=== PATIENT | male | born 2000 | race Caucasian/White ===

== ENCOUNTER 2020-04-15 15:32 | Inpatient (IN) ==
[2020-04-15 16:03] LABS: Appearance Urine Clear (Clear); Bacteria Urine Automated Negative (Negative); Bilirubin Urine Negative (Negative); Blood Urine Negative (Negative); Color Urine Dark Yellow; Glucose Urine UA Negative (Negative); Ketones Urine 1+ (Negative); Leukocyte Esterase Urine Trace (Negative); Nitrite Urine Negative (Negative); Protein Urine 1+ (Negative); RBC Urine Automated 0-4 /hpf (0-4); Specific Gravity Urine 1.033 (1.000-1.030); Urobilinogen Urine Negative (Negative)
[2020-04-15 16:21] LABS: Basophils # (auto) 0.03 K/uL (0-0.2); Basophils % (auto) 0.3 %; Eosinophils # (auto) 0.02 K/uL (0-0.5); Eosinophils % (auto) 0.2 %; Hematocrit (blood only) 42.1 % (42-52); Hemoglobin 14.8 g/dL (14.0-18.0); Immature Granulocytes # (auto) 0.01 K/uL (0.00-0.02); Immature Granulocytes % (auto) 0.1 %; Lymphocytes # (auto) 1.99 K/uL (1.2-3.4); Lymphocytes % (auto) 22.3 %; Mean Corpuscular Hemoglobin 30.5 pg (25-34); Mean Corpuscular Hgb Conc 35.2 g/dL (32-36); Mean Corpuscular Volume 86.8 fL (80-100); Mean Platelet Volume 10.5 fL (7.4-10.4); Monocytes # (auto) 0.82 K/uL (0.11-0.59); Monocytes % (auto) 9.2 %; Neutrophils # (auto) 6.07 K/uL (1.4-6.5); Neutrophils % (auto) 67.9 %; Platelet Count 345 K/uL (130-400); RDW Coefficient of Variation 12.8 % (11.5-14.5); RDW Standard Deviation 40.8 fL (36.4-46.3); Red Blood Count 4.85 M/uL (4.7-6.1); White Blood Count 8.94 K/uL (4.8-10.8)
[2020-04-15 16:24] LABS: Amphetamines+Metham, Urine Neg (Neg); Barbiturates, Urine Neg (Neg); Benzodiazepine, Urine Neg (Neg); Cocaine, Urine Neg (Neg); MDMA (Ecstacy), Urine Neg (Neg); Methadone, Urine Neg (Neg); Opiate, Urine Neg (Neg); Phencyclidine, Urine Neg (Neg)
--- NOTE | 2020-04-15 16:30 | Emergency Department Note ---
Impression & Plan Mood disorder, Depression, Marijuana use ED Provider Note NAME: PREET PHILLIP AGE: 19 SEX: M : 2000 ARRIVES VIA: Walk-In INFORMANT: Patient ED PROVIDER(S): Juan Alberto Maradiaga DO CHIEF COMPLAINT: Mood disorder HPI: Patient is a 19-year-old male who presents to the ER for mood disorder. Patient notes that he has been feeling sad and depressed. He has had this for years and it waxes and wanes. Has been diagnosed with depression. Has been taking his medications. He notes that over the past several months things have been getting worse. Small things snowball into bigger things. He denies any homicidal ideations. He admits to thoughts of wanting to end it all. He denies any current plan. He notes these thoughts have been recurrent and persistent and that is why he has come in. He does not want to hurt himself at this time these thoughts are continuing. ROS: See above HPI for pertinent positives & negatives. A total of 10 systems reviewed and were otherwise negative. PAST MEDICAL HISTORY:See Below PAST SURGICAL HISTORY:See Below FAMILY HISTORY:See Below SOCIAL HISTORY:See Below HOME MEDICATIONS:See Below ALLERGIES:See Below VITALS:See Below PHYSICAL EXAMINATION: GENERAL: Sitting up in bed, alert, well appearing, well nourished, no distress, non-toxic EYE EXAM: normal conjunctiva OROPHARYNX: no exudate, no erythema, lips, buccal mucosa, and tongue normal and mucous membranes are moist NECK: supple, no nuchal rigidity, no adenopathy, non-tender LUNGS: Clear to auscultation. Normal chest wall mechanics HEART: no murmurs, S1 normal and S2 normal ABDOMEN: abdomen soft, non-tender, normo-active bowel sounds, no masses, no rebo und or guarding. UPPER EXTREMITIES: upper extremities are grossly normal. LOWER EXTREMITIES: No pitting edema. NEURO EXAM: Normal sensorium, cranial nerves II-XII grossly intact, normal speech, no gross weakness of arms, no gross weakness of legs. PSYCH: Admits to thoughts of wanting to end it all but no clear plan. No homicidal ideations. No auditory visual hallucinations. MEDICAL DECISION MAKING: Patient is a 89-year-old male who presents ER for feeling depressed and life is not worth living anymore. He does not have any clear plan at this time but feels uncomfortable being at home. Does have a history of depression. Labs were obtained and showed no significant leukocytosis or anemia. BMP with LFTs bilirubin and TSH was unremarkable. UA was contaminated with multiple epithelial cells. Will not treat. Tox was positive for marijuana. Alcohol neg ative. Covid negative. Patient was medically stable. Evaluated by 3 S. and admitted for further work-up. Triage Nursing notes reviewed. Prior medical records reviewed Vital Signs: reviewed and remarkable for no significant abnormalities Differential diagnosis: Mood disorder, infection, hypoglycemia, electrolyte abnormalities, cardiac sources, intracerebral event, toxicologic, trauma, neurologic, as well as other pathologies. ER treatment provided: See below Diagnostics interpreted by me: ECG: none Laboratory studies: As stated above and show below. Imaging studies: none Consultation(s): [address] [place] [address] ED COURSE: Procedures: none Critical Care: None Past Med/Surg History Social History Smoking Status: Never smoker Preferred Language: Arabic Communication Ability: Effective Weatherization Crew Leader Required: No Beliefs That Will Affect Care: None Feels Safe at Home: Yes Assistive Devices: None Allergies Allergies Allergy/AdvReac Type Severity Reaction Status Date / Time No Known Allergies Allergy Unverified 04/15/20 16:13 Home Meds Home Medications Medication Instructions Recorded Confirmed escitalopram oxalate 10 mg PO DAILY 04/15/20 04/15/20 Results & Data (ED) Vital Signs Vital Signs - 24 hr 04/15/20 15:36 04/15/20 17:32 Temperature 37.4 C Temperature Source Oral Pulse Rate 84 Pulse Rate [Right Finger] 68 Respiratory Rate 18 20 Respiratory Effort / Characteristics Non-Labored Spontaneous Respiratory Depth Normal Respiratory Pattern Regular Blood Pressure 145/78 H Blood Pressure [Right Arm] 124/77 Blood Pressure Mean 100 Blood Pressure Mean [Right Arm] 92 Pulse Oximetry 99 98 Oxygen Delivery Method Room Air Room Air Sepsis Recent Fever Within 48 Hours No Sepsis New/Unexplained Change in Mental Status N/A Sepsis Action Taken by Nursing No Action Required Laboratory Data Result diagrams: 04/15/20 16:06 04/15/20 16:06 Lab Results 04/15/20 04/15/20 04/15/20 Range/Units 15:40 15:40 16:06 WBC 8.94 (4.8-10.8) K/uL RBC 4.85 (4.7-6.1) M/uL Hgb 14.8 (14.0-18.0) g/dL Hct 42.1 (42-52) % MCV 86.8 (80-100) fL MCH 30.5 (25-34) pg MCHC 35.2 (32-36) g/dL RDW Std Deviation 40.8 (36.4-46.3) fL RDW Coeff of Yeny 12.8 (11.5-14.5) % Plt Count 345 (130-400) K/uL MPV 10.5 H (7.4-10.4) fL Immature Gran % (Auto) 0.1 % Neut % (Auto) 67.9 % Lymph % (Auto) 22.3 % [place] % (Auto) 9.2 % Eos % (Auto) 0.2 % Baso % (Auto) 0.3 % Neut # (Auto) 6.07 (1.4-6.5) K/uL Lymph # (Auto) 1.99 (1.2-3.4) K/uL [place] # (Auto) 0.82 H (0.11-0.59) K/uL Eos # (Auto) 0.02 (0-0.5) K/uL Baso # (Auto) 0.03 (0-0.2) K/uL Immature Gran # (Auto) 0.01 (0.00-0.02) K/uL Sodium (136-145) mmol/L Potassium (3.5-5.1) mmol/L Chloride (98-107) mmol/L Carbon Dioxide (21-32) mmol/L Anion Gap (3-11) BUN (7-18) mg/dl Creatinine (0.6-1.4) mg/dl Est Cr Clr Drug Dosing ml/min Est GFR ( Amer) Est GFR (Non-Af Amer) BUN/Creatinine Ratio (10-20) Glucose (70-99) mg/dl Calcium (8.5-10.1) mg/dl Total Bilirubin (0.2-1) mg/dl AST (15-37) U/L ALT (12-78) U/L Alkaline Phosphatase (45-117) U/L Total Protein (6.4-8.2) gm/dl Albumin (3.4-5.0) gm/dl Globulin (2.5-4.0) gm/dl Albumin/Globulin Ratio (0.9-2) TSH (0.300-4.500) uIu/ml Urine Color Dark Yellow Urine Appearance Clear (Clear) Urine pH 6.0 (4.5-7.5) Ur Specific [place] 1.033 H (1.000-1.030) Urine Protein 1+ H (Negative) Urine Glucose (UA) Negative (Negative) Urine Ketones 1+ H (Negative) Urine Blood Negative (Negative) Urine Nitrite Negative (Negative) Urine Bilirubin Negative (Negative) Urine Urobilinogen Negative (Negative) Ur Leukocyte Esterase Trace H (Negative) Urine WBC (Auto) 1-5 (0-5) /hpf Urine RBC (Auto) 0-4 (0-4) /hpf U Hyaline Cast (Auto) 1-5 (0-5) /lpf U Epithel Cells (Auto) 5-10 H (0-5) /lpf Urine Bacteria (Auto) Negative (Negative) Salicylates (2.8-20) mg/dl Urine Opiates Screen Neg (Neg) Ur Methadone, Qual Neg (Neg) Acetaminophen (10-30) ug/ml Urine Barbiturates Neg (Neg) Ur Phencyclidine (PCP) Neg (Neg) U Amphetamin/Meth Scrn Neg (Neg) MDMA (Ecstasy) Screen Neg (Neg) U Benzodiazepines Scrn Neg (Neg) Ur Cocaine Metabolite Neg (Neg) U Marijuana (THC) Screen Pos H (Neg) Ethyl Alcohol mg/dL (0-3) mg/dl 04/15/20 04/15/20 04/15/20 Range/Units 16:06 16:06 16:06 WBC (4.8-10.8) K/uL RBC (4.7-6.1) M/uL Hgb (14.0-18.0) g/dL Hct (42-52) % MCV (80-100) fL MCH (25-34) pg MCHC (32-36) g/dL RDW Std Deviation (36.4-46.3) fL RDW Coeff of Yeny (11.5-14.5) % Plt Count (130-400) K/uL MPV (7.4-10.4) fL Immature Gran % (Auto) % Neut % (Auto) % Lymph % (Auto) % [place] % (Auto) % Eos % (Auto) % Baso % (Auto) % Neut # (Auto) (1.4-6.5) K/uL Lymph # (Auto) (1.2-3.4) K/uL [place] # (Auto) (0.11-0.59) K/uL Eos # (Auto) (0-0.5) K/uL Baso # (Auto) (0-0.2) K/uL Immature Gran # (Auto) (0.00-0.02) K/uL Sodium 137 (136-145) mmol/L Potassium 3.6 (3.5-5.1) mmol/L Chloride 105 (98-107) mmol/L Carbon Dioxide 27 (21-32) mmol/L Anion Gap 5.0 (3-11) BUN 17 (7-18) mg/dl Creatinine 1.10 (0.6-1.4) mg/dl Est Cr Clr Drug Dosing 87.8 ml/min Est GFR ( Amer) 112.2 Est GFR (Non-Af Amer) 96.8 BUN/Creatinine Ratio 15.7 (10-20) Glucose 105 H (70-99) mg/dl Calcium 8.8 (8.5-10.1) mg/dl Total Bilirubin 0.7 (0.2-1) mg/dl AST 11 L (15-37) U/L ALT 17 (12-78) U/L Alkaline Phosphatase 55 (45-117) U/L Total Protein 7.8 (6.4-8.2) gm/dl Albumin 4.5 (3.4-5.0) gm/dl Globulin 3.3 (2.5-4.0) gm/dl Albumin/Globulin Ratio 1.4 (0.9-2) TSH 0.736 (0.300-4.500) uIu/ml Urine Color Urine Appearance (Clear) Urine pH (4.5-7.5) Ur Specific [place] (1.000-1.030) Urine Protein (Negative) Urine Glucose (UA) (Negative) Urine Ketones (Negative) Urine Blood (Negative) Urine Nitrite (Negative) Urine Bilirubin (Negative) Urine Urobilinogen (Negative) Ur Leukocyte Esterase (Negative) Urine WBC (Auto) (0-5) /hpf Urine RBC (Auto) (0-4) /hpf U Hyaline Cast (Auto) (0-5) /lpf U Epithel Cells (Auto) (0-5) /lpf Urine Bacteria (Auto) (Negative) Salicylates < 1.7 L (2.8-20) mg/dl Urine Opiates Screen (Neg) Ur Methadone, Qual (Neg) Acetaminophen < 2 L (10-30) ug/ml Urine Barbiturates (Neg) Ur Phencyclidine (PCP) (Neg) U Amphetamin/Meth Scrn (Neg) MDMA (Ecstasy) Screen (Neg) U Benzodiazepines Scrn (Neg) Ur Cocaine Metabolite (Neg) U Marijuana (THC) Screen (Neg) Ethyl Alcohol mg/dL < 3.0 (0-3) mg/dl Discharge Plan Visit Data Chief Complaint: Mental Health Evaluation Stated Complaint: MENTAL HEALTH EVAL ED Provider: Juan Alberto Maradiaga Discharge Problem: Mood disorder, Depression, Marijuana use Discharge Problem: Depression Qualifiers: Depression Type: unspecified Qualified Code(s): F32.9 - Major depressive disorder, single episode, unspecified
[2020-04-15 16:44] LABS: Albumin Level 4.5 gm/dl (3.4-5.0); BUN Creatinine Ratio 15.7 (10-20); Calcium 8.8 mg/dl (8.5-10.1); Creatinine Clr Calc Pharmacy 87.8 ml/min; Est GFR (African American) 112.2; Est GFR (Non-African American) 96.8; Potassium 3.6 mmol/L (3.5-5.1)
[2020-04-15 16:55] LABS: Albumin Globulin Ratio 1.4 (0.9-2); Bilirubin,Total 0.7 mg/dl (0.2-1); Globulin 3.3 gm/dl (2.5-4.0); Thyroid Stimulating Hormone 0.736 uIu/ml (0.300-4.500); Total Protein 7.8 gm/dl (6.4-8.2)
[2020-04-15 17:06] LABS: Acetaminophen < 2 ug/ml (10-30); Salicylate < 1.7 mg/dl (2.8-20)
[2020-04-15] MEDS ORDERED: ACETAMINOPHEN 325 MG TAB PO PRN (18:51)
[2020-04-15] MEDS ORDERED: ALUMINUM/MAGNESIUM SUSP 30 ML UDC PO PRN (18:51)
[2020-04-15] MEDS ORDERED: hydrOXYzine HCl 25 MG TAB PO PRN ×2 (18:51)
[2020-04-15] MEDS ORDERED: BISMUTH SUBSALICYLATE LIQD 236 ML PO PRN (18:51)
[2020-04-15] MEDS ORDERED: SODIUM CHLORIDE 0.65% NA SOLN 45 ML (OCEAN) PRN (18:51)
[2020-04-15] MEDS ORDERED: MAGNESIUM HYDROXIDE SUSP 30 ML UDC PO PRN (18:51)
[2020-04-16] MEDS ORDERED: ESCITALOPRAM OXALATE 10 MG TAB PO SCH (09:00)
--- NOTE | 2020-04-16 16:22 | History & Physical ---
Date of Service April 16, 2020 Impression / Recommendations (1) Depression: 04/16/2020 -Patient admitted on a voluntary status to the behavioral health unit. He will be maintained on every 15 minute safety checks and encouraged to participate in therapeutic programming as appropriate -We'll continue to expand database. Input from patient's mother per social work suggests possibility that he is minimizing severity of suicidality on initial interview -Common risks and benefits as well as need for consistent medication compliance reviewed regarding SSRI. Patient was agreeable to small dose escalation of Lexapro to 15 mg daily for additional antidepressant benefit Depression Type: unspecified Qualified Code(s): F32.9 - Major depressive disorder, single episode, unspecified (2) Marijuana use: 04/16/2020 -Psychoeducation provided regarding the potential negative outcomes of marijuana abuse regarding underlying mood disorder and abstinence encouraged. Patient verbalized understanding and indicated that he had already significantly reduced marijuana utilization prior to presentation as he felt that it was making him more apathetic Risk Factors Assessment Do You Have Access To A Gun?: No (Reports father has guns at home but are secured) Protective Factors Assessment Employed: No Psychiatric History Identifying Data PREET PHILLIP is a 19-year-old M who currently lives in an apartment in [place] when in school but presently in parents' home in [place], [place], has a history of no formal prior psychiatric diagnoses with treatment and no significant prior medical history, and was admitted on 04/15/20 18:51 on a 201 voluntary commitment for suicidal ideation. Chief Complaint "I feel a lot better since I came in here. It makes you think about how cielo you are". History of Present Illness Patient was admitted through the ER last evening where he presented reporting feeling sad, depressed, with waxing and waning course over the years. He felt that his depression has been getting worse over the past several months with small stressors having more overwhelming emotional impact. He acknowledged thoughts of wanting to end it all and thought that the suicidal impulses have been recurrent and persistent but denied a specific plan for self-harm. He was medically cleared for behavioral health admission. Labs were unremarkable apart from marijuana on drug screen. On interview he describes a long history of depression where he will feel sad without clear trigger. He describes recent default mood as "bored and lonely." COVID-19 restrictions have worsened his mood. "It feels like he can't do anything." He describes recurrent but not persistent desire to escape the pain of how he is feeling however he denies that he has concocted a specific plan for self-harm and denies a history of self injury. He describes stable sleep patterns, fair energy, crying spells 1-2 times per week, small unquantified recent weight loss. He denies anhedonia. He denies any symptoms of psychosis, venice, PTSD, generalized anxiety, social anxiety, eating disorder, or panic attacks. He reports he was started on Lexapro a few years ago by his PCP around the age of [age] but did not take it consistently and discontinued after approximately 6 months. This was restarted approximately 1 month ago without side effects. He reports that he is presently compliant with the medication. He describes a quick flight to health on admission stating that he does not believe he needs this level of intervention, intent or plan for self-harm presently, but does describe desire to seek additional supports and feel better. Of note, in the afternoon following initial psychiatric interview, I was informed by social work that the patient's mother had indicated to her that he had made numerous threats to commit suicide, that she had made efforts to involve his school but he failed to follow through, and that on Saturday he told her via text that he wanted to kill himself and he refused to engage in discourse about that which prompted her to alert his girlfriend who reportedly brought him to the ER. Patient's girlfriend reportedly told his mother that she had seen evidence of some cuts on arms and legs that were not described on physical exam in the ER. Past Psychiatric History Previous Psych History: Prior brief treatment on Lexapro by PCP took for 6 months or less inconsistently around age of [age]. Restarted 1 month prior to presentation here Current Psychiatric Diagnosis: Depression Outpatient Services: None Previous Psych Admissions: None Do You Have Access To A Gun?: No (Reports father has guns at home but are secured) History of Previous Suicide Attempt: No Past Medication Trials: Lexapro Past Head Trauma/Neuro History History of Concussion/Seizure: No Allergies Allergy/AdvReac Type Severity Reaction Status Date / Time No Known Allergies Allergy Unverified 04/15/20 16:13 Home Medications Medication Instructions Recorded Confirmed Type escitalopram oxalate 10 mg PO DAILY 04/15/20 04/15/20 History Family History Family History of: Depression (Reports multiple family members with history of depression including mother, sisters, maternal uncle, maternal grandmother) Family Mental Health History Comment: Denies family history of suicide Alcohol History Hx of Alcohol Use Over the Past 12 Months: No AUDIT Total Score: 0 Smoking Use Have You Smoked or Used Tobacco Products in the Last 30 Days: Yes tobacco type: e-cigarettes (Reports daily vaping) Substance History Hx of Prescription Med Misuse Over the Past 12 Months: No Hx of Over the Counter Med Misuse Over the Past 12 Months: No Hx of Inhalent Misuse Over the Past 12 Months: No Hx of Organic Substance Use Over the Past 12 Months: Yes (marijuana occassionally none in past 3 days) Hx of Illegal Substances/Street Drug Use Over Past 12 Months: No Problems as a Result of Past Substance Use: None Identified Personal History Living Arrangements: Home Living Arrangements Comments: Lives at home with his parents. Has an apartment at school in [place] with three other roommates Childhood: Reports supportive parents Highest Grade Completed: College and Some College Highest Grade Completed Comment: Sophomore at [employer]. Majoring in [employer] with a minor in economics Marital Status: Single Number Of Children: 0 Beliefs That Will Affect Care: None Current Legal Problems: No Hx Legal Problems: No Hx Traumatic Life Events: No Psychological Trauma History Comment: Denies Patient History Social History Smoking Status: Never smoker Preferred Language: Chinese Communication Ability: Effective Forensic Medical Examiner Required: No Beliefs That Will Affect Care: None Feels Safe at Home: Yes Assistive Devices: None Review of Systems Review of Systems: Ten point review of systems otherwise negative except as p er HPI Physical Exam Psychiatric: Orientation: alert, oriented x 3 and cooperative Apperance: appropriately dressed and appropriately groomed Eye Contact: + fair eye contact Motor Behavior: steady gait and station and no abnormal motor movements Speech: normal rate/rhythm/volume of speech Affect: euthymic affect (Mildly anxious) Mood: no depressed mood ("I feel fine now.") Thought Process: goal directed thought process Thought Content: reality based without delusions (Flight to health evident) Suicidal Thoughts: denies suicidal thoughts (Acknowledges suicidal thoughts prior to admission), denies suicidal plan and denies suicidal intent Homicidal Thoughts: denies homicidal thoughts, denies homicidal plan and denies homicidal intent Hallucinations: no auditory hallucinations, no visual hallucinations and no tactile hallucinations Cognition: recent memory grossly intact, remote memory grossly intact and attention grossly intact Estimated Intelligence: average estimated intelligence Insight: + fair insight Judgement: + fair judgement Vital Signs (Past 24 Hours): Last Vital Signs Temp 36.8 C 04/16/20 06:45 Pulse 73 04/16/20 06:46 Resp 16 04/16/20 06:45 BP 100/67 04/16/20 06:46 Pulse Ox 98 04/15/20 17:32 Exam Statement: Physical exam completed in the ER 04/15/2020 was reviewed and accepted for purpose of initial behavioral health admission Results & Data ([facility]) Laboratory Results Laboratory Results - last 24 hr 04/15/20 04/15/20 04/15/20 15:40 15:40 16:06 WBC 8.94 RBC 4.85 Hgb 14.8 Hct 42.1 MCV 86.8 MCH 30.5 MCHC 35.2 RDW Std Deviation 40.8 RDW Coeff of Yeny 12.8 Plt Count 345 MPV 10.5 H Immature Gran % (Auto) 0.1 Neut % (Auto) 67.9 Lymph % (Auto) 22.3 [place] % (Auto) 9.2 Eos % (Auto) 0.2 Baso % (Auto) 0.3 Neut # (Auto) 6.07 Lymph # (Auto) 1.99 [place] # (Auto) 0.82 H Eos # (Auto) 0.02 Baso # (Auto) 0.03 Immature Gran # (Auto) 0.01 Sodium Potassium Chloride Carbon Dioxide Anion Gap BUN Creatinine Est Cr Clr Drug Dosing Est GFR ( Amer) Est GFR (Non-Af Amer) BUN/Creatinine Ratio Glucose Calcium Total Bilirubin AST ALT Alkaline Phosphatase Total Protein Albumin Globulin Albumin/Globulin Ratio TSH Salicylates Urine Opiates Screen Neg Ur Methadone, Qual Neg Acetaminophen Urine Barbiturates Neg Ur Phencyclidine (PCP) Neg U Amphetamin/Meth Scrn Neg MDMA (Ecstasy) Screen Neg U Benzodiazepines Scrn Neg Ur Cocaine Metabolite Neg U Marijuana (THC) Screen Pos H U Marijuana THC Carboxy Pending Drug Screen Comment Pending Ethyl Alcohol mg/dL SARS-CoV-2 Ag (Rapid) 04/15/20 04/15/20 04/15/20 16:06 16:06 16:06 WBC RBC Hgb Hct MCV MCH MCHC RDW Std Deviation RDW Coeff of Yeny Plt Count MPV Immature Gran % (Auto) Neut % (Auto) Lymph % (Auto) [place] % (Auto) Eos % (Auto) Baso % (Auto) Neut # (Auto) Lymph # (Auto) [place] # (Auto) Eos # (Auto) Baso # (Auto) Immature Gran # (Auto) Sodium 137 Potassium 3.6 Chloride 105 Carbon Dioxide 27 Anion Gap 5.0 BUN 17 Creatinine 1.10 Est Cr Clr Drug Dosing 87.8 Est GFR ( Amer) 112.2 Est GFR (Non-Af Amer) 96.8 BUN/Creatinine Ratio 15.7 Glucose 105 H Calcium 8.8 Total Bilirubin 0.7 AST 11 L ALT 17 Alkaline Phosphatase 55 Total Protein 7.8 Albumin 4.5 Globulin 3.3 Albumin/Globulin Ratio 1.4 TSH 0.736 Salicylates < 1.7 L Urine Opiates Screen Ur Methadone, Qual Acetaminophen < 2 L Urine Barbiturates Ur Phencyclidine (PCP) U Amphetamin/Meth Scrn MDMA (Ecstasy) Screen U Benzodiazepines Scrn Ur Cocaine Metabolite U Marijuana (THC) Screen U Marijuana THC Carboxy Drug Screen Comment Ethyl Alcohol mg/dL < 3.0 SARS-CoV-2 Ag (Rapid) 04/15/20 Unknown WBC RBC Hgb Hct MCV MCH MCHC RDW Std Deviation RDW Coeff of Yeny Plt Count MPV Immature Gran % (Auto) Neut % (Auto) Lymph % (Auto) [place] % (Auto) Eos % (Auto) Baso % (Auto) Neut # (Auto) Lymph # (Auto) [place] # (Auto) Eos # (Auto) Baso # (Auto) Immature Gran # (Auto) Sodium Potassium Chloride Carbon Dioxide Anion Gap BUN Creatinine Est Cr Clr Drug Dosing Est GFR ( Amer) Est GFR (Non-Af Amer) BUN/Creatinine Ratio Glucose Calcium Total Bilirubin AST ALT Alkaline Phosphatase Total Protein Albumin Globulin Albumin/Globulin Ratio TSH Salicylates Urine Opiates Screen Ur Methadone, Qual Acetaminophen Urine Barbiturates Ur Phencyclidine (PCP) U Amphetamin/Meth Scrn MDMA (Ecstasy) Screen U Benzodiazepines Scrn Ur Cocaine Metabolite U Marijuana (THC) Screen U Marijuana THC Carboxy Drug Screen Comment Ethyl Alcohol mg/dL SARS-CoV-2 Ag (Rapid) Negative Current Inpatient Medications Current Inpatient Medications: Current Inpatient Medications Acetaminophen (Acetaminophen 325 Mg Tab) 650 mg PO Q4H PRN PRN Reason: Headache or Minor Fever Stop: 05/15/20 18:50 Al Hydrox/Mg Hydrox/Simethicone (Aluminum/Magnesium Susp 30 Ml Udc) 30 ml PO Q4H PRN PRN Reason: GI Upset Stop: 05/15/20 18:50 Bismuth Subsalicylate (Bismuth Subsalicylate Liqd 236 Ml) 15 ml PO PRN PRN PRN Reason: Loose Stool Stop: 05/15/20 18:50 Escitalopram Oxalate (Escitalopram Oxalate 10 Mg Tab) 10 mg PO QAM PAULO Stop: 05/16/20 08:59 Last Admin: 04/16/20 08:44 Dose: 10 mg Documented by: Hydroxyzine HCl (Hydroxyzine Hcl 25 Mg Tab) 50 mg PO HSZ PRN PRN Reason: Insomnia Stop: 05/15/20 18:50 Hydroxyzine HCl (Hydroxyzine Hcl 25 Mg Tab) 25 mg PO Q4H PRN PRN Reason: Anxiety Stop: 05/15/20 18:50 Magnesium Hydroxide (Magnesium Hydroxide Susp 30 Ml Udc) 30 ml PO DAILY PRN PRN Reason: Constipation Stop: 05/15/20 18:50 Sodium Chloride (Sodium Chloride 0.65% Na Soln 45 Ml ([place])) 1 - 2 sprays NA PRN PRN PRN Reason: Nasal Dryness/Congestion Stop: 05/15/20 18:50
[2020-04-16] MEDS ORDERED: ESCITALOPRAM OXALATE 10 MG TAB PO ONE (16:34)
[2020-04-17] MEDS: ESCITALOPRAM OXALATE 10 MG TAB PO SCH (10:06)
--- NOTE | 2020-04-17 12:16 | Psychiatric Progress Note ---
Date of Service April 17, 2020 Impression / Recommendations (1) Depression: 04/16/2020 -Patient admitted on a voluntary status to the behavioral health unit. He will be maintained on every 15 minute safety checks and encouraged to participate in therapeutic programming as appropriate -We'll continue to expand database. Input from patient's mother per social work suggests possibility that he is minimizing severity of suicidality on initial interview -Common risks and benefits as well as need for consistent medication compliance reviewed regarding SSRI. Patient was agreeable to small dose escalation of Lexapro to 15 mg daily for additional antidepressant benefit 04/17 -I am increasingly concerned about patient's safety and impulsivity today, as it appears likely that he has not been forthcoming regarding recent self injury (cutting) and degree of emotional distress which has been recently associated with some destructive behavior and suicidal threats per outside historian. As such, we will plan to continue his hospitalization at least until tomorrow and reinvolve his mother with another family meeting this afternoon mood with his permission to try to bring some of these issues to the fore and hopefully engage him in some more honest dialogue -Consider increasing Lexapro to 20 mg daily prior to discharge -Reviewed importance of outpatient follow-up and patient expresses continued willingness to do so. On Saturday we will be able to schedule him for psychiatric and therapy follow-up appointments (2) Marijuana use: 04/16/2020 -Psychoeducation provided regarding the potential negative outcomes of marijuana abuse regarding underlying mood disorder and abstinence encouraged. Patient verbalized understanding and indicated that he had already significantly reduced marijuana utilization prior to presentation as he felt that it was making him more apathetic Risk Factors Assessment Do You Have Access To A Gun?: No (Reports father has guns at home but are secured) Protective Factors Assessment Employed: No Interval History Chief Complaint "I'm not lying. I am fine". Review of Systems Notes 10 point review of systems otherwise negative except as above Sleep Information Total Hours of Sleep: 6.5 Meal Information Percent Meal Consumed - Breakfast: 80 Percent Meal Consumed - Lunch: 80 Percent Meal Consumed - Dinner: 70 Subjective Subjective Patient was seen & assessed and interval progress reviewed with treatment team. Patient was confronted with supplementary information obtained from patient's mother yesterday indicating recent suicidal threats, her expressed significant concern for his safety should he return home presently, recent destruction of physical property which was reportedly out of character for him, and possibility of recent self injury in the form of cutting. Patient showed me his forearms this morning and he had a series of several parallel approximate 1 inch superficial healing scratches on his left forearm which appeared to be self- inflicted. He tried to explain he is away stating that he has a cat and has been doing some work with his father and held fast to this explanation despite multiple opportunities for him to disclose self injury. 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 Contradictory to what he told me yesterday, he now reports that he is barely passing several of his classes and if he misses his accounting exam he is worried that he will fail. He again reports a [facility] upon arrival to the hospital stating that he only needed an opportunity to see that he does not have it so bad as compared to others and tells me that his mood is the best that it has been in quite some time this morning however he looks dys phoric outwardly. He denies any active intention or plan for self-harm. He states that he would never do that because he does not like pain. He denies any additional stressors or recent traumas that he is willing to disclose. Physical Exam Psychiatric Orientation: alert, oriented x 3 and + guarded Apperance: appropriately dressed and appropriately groomed (Casually groomed) Eye Contact: + fair eye contact Motor Behavior: steady gait and station Speech: normal rate/rhythm/volume of speech Affect: + mood not congruent with affect (Outwardly he appears more constricted and dysphoric this morning) "I am fine" Thought Process: + perseveration (He repeats himself that he would never hurt himself and discharge) Thought Content: reality based without delusions Suicidal Thoughts: denies suicidal thoughts, denies suicidal plan and denies suicidal intent Homicidal Thoughts: denies homicidal thoughts Hallucinations: no auditory hallucinations, no visual hallucinations and no tactile hallucinations Cognition: recent memory grossly intact and language grossly intact Estimated Intelligence: average estimated intelligence Insight: + limited insight Judgement: + limited judgement (Judgment presently appears impacted by denial) Vital Signs (Past 24 Hours) Last Vital Signs Temp 36.6 C 04/17/20 06:35 Pulse 91 H 04/17/20 06:36 Resp 16 04/17/20 06:35 BP 108/69 04/17/20 06:36 Pulse Ox 98 11/20/20 17:32 Skin Trauma: + evidence of skin trauma (Several approximate 1 inch superficial parallel scratches L forearm) Results & Data ([facility]) Current Inpatient Medications Current Inpatient Medications: Current Inpatient Medications Acetaminophen (Acetaminophen 325 Mg Tab) 650 mg PO Q4H PRN PRN Reason: Headache or Minor Fever Stop: 05/15/20 18:50 Al Hydrox/Mg Hydrox/Simethicone (Aluminum/Magnesium Susp 30 Ml Udc) 30 ml PO Q4H PRN PRN Reason: GI Upset Stop: 05/15/20 18:50 Bismuth Subsalicylate (Bismuth Subsalicylate Liqd 236 Ml) 15 ml PO PRN PRN PRN Reason: Loose Stool Stop: 05/15/20 18:50 Escitalopram Oxalate (Escitalopram Oxalate 10 Mg Tab) 15 mg PO QAM PAULO Stop: 05/17/20 08:59 Last Admin: 04/17/20 10:06 Dose: 15 mg Documented by: Hydroxyzine HCl (Hydroxyzine Hcl 25 Mg Tab) 50 mg PO HSZ PRN PRN Reason: Insomnia Stop: 05/15/20 18:50 Hydroxyzine HCl (Hydroxyzine Hcl 25 Mg Tab) 25 mg PO Q4H PRN PRN Reason: Anxiety Stop: 05/15/20 18:50 Magnesium Hydroxide (Magnesium Hydroxide Susp 30 Ml Udc) 30 ml PO DAILY PRN PRN Reason: Constipation Stop: 05/15/20 18:50 Sodium Chloride (Sodium Chloride 0.65% Na Soln 45 Ml ([place])) 1 - 2 sprays NA PRN PRN PRN Reason: Nasal Dryness/Congestion Stop: 05/15/20 18:50 Post Discharge Appointments Primary Care Physician Name Of Family Doctor: Dr. Sharona Hodges Date of Appointment with PCP: 05/10/20 (1) Depression Depression Type: unspecified Qualified Code(s): F32.9 - Major depressive disorder, single episode, unspecified
[2020-04-17 17:22] LABS: Marijuana Quant, GCMS Urine 1380 ng/mL (<5)
[2020-04-18] MEDS: ESCITALOPRAM OXALATE 10 MG TAB PO SCH (09:07)
--- NOTE | 2020-04-18 10:51 | Psychiatric Progress Note ---
Date of Service April 18, 2020 Impression / Recommendations (1) Depression: 04/16/2020 -Patient admitted on a voluntary status to the behavioral health unit. He will be maintained on every 15 minute safety checks and encouraged to participate in therapeutic programming as appropriate -We'll continue to expand database. Input from patient's mother per social work suggests possibility that he is minimizing severity of suicidality on initial interview -Common risks and benefits as well as need for consistent medication compliance reviewed regarding SSRI. Patient was agreeable to small dose escalation of Lexapro to 15 mg daily for additional antidepressant benefit 04/17 -I am increasingly concerned about patient's safety and impulsivity today, as it appears likely that he has not been forthcoming regarding recent self injury (cutting) and degree of emotional distress which has been recently associated with some destructive behavior and suicidal threats per outside historian. As such, we will plan to continue his hospitalization at least until tomorrow and reinvolve his mother with another family meeting this afternoon mood with his permission to try to bring some of these issues to the fore and hopefully engage him in some more honest dialogue -Consider increasing Lexapro to 20 mg daily prior to discharge -Reviewed importance of outpatient follow-up and patient expresses continued willingness to do so. On Saturday we will be able to schedule him for psychiatric and therapy follow-up appointments 04/18 - Continue current treatment plan. Recommending ongoing hospitalization until aftercare can be appropriately arranged. - Pt continues to have difficulty articulating the stressors that led to his admission, placing him at higher risk of potential harm to self if he is discharged without appropriate outpatient providers. - He remains resistant to any further titration of escitalopram. (2) Marijuana use: 04/16/2020 -Psychoeducation provided regarding the potential negative outcomes of marijuana abuse regarding underlying mood disorder and abstinence encouraged. Patient verbalized understanding and indicated that he had already significantly reduced marijuana utilization prior to presentation as he felt that it was making him more apathetic Risk Factors Assessment Do You Have Access To A Gun?: No (Reports father has guns at home but are secured) Protective Factors Assessment Employed: No Interval History Identifying Information PREET PHILLIP is a 19-year-old M who currently lives in an apartment in [place] when in school but presently in parents' home in [place], [place], has a history of no formal prior psychiatric diagnoses with treatment and no significant prior medical history, and was admitted on 04/15/20 18:51 on a 201 voluntary commitment for suicidal ideation. Chief Complaint "I'm fine. I was feeling ready to go." Review of Systems Notes Constitutional: denied Cardiovascular: denied Respiratory: denied Gastrointestinal: denied Neurological: denied Psychiatric: denies symptoms other than stated above Total of at least 10 systems reviewed, pertinent positives as above and in HPI. Sleep Information Total Hours of Sleep: 7.5 Meal Information Percent Meal Consumed - Breakfast: 70 Percent Meal Consumed - Lunch: 100 Percent Meal Consumed - Dinner: 100 Subjective Subjective Patient was seen & assessed and interval progress reviewed with treatment team. Staff report that it has been difficult to encourage the patient to open up about stressors leading to his hospitalization, and even once patient is able to identify concerns, he indicates that he is "fine" to manage them. Pt has required two family meetings with his mother due to concern for minimizing symptoms and mother's concern regarding patient not being forthcoming with treatment. The mother did indicate she was feeling more comfortable after the second meeting. However, patient still does not have outpatient appointments scheduled. Pt was seen today to assess progress since admission. Pt states "I'm fine. I was feeling ready to go." Pt was updated in his treatment team review that our recommendation is that he continue working to process stressors leading to admission while staff continues attempts to secure aftercare. Pt states that aside from securing outpatient appointments, he is feeling better. He continues to be resistant to processing any deep topics related to his presentation, but is at least able to deny SI. Pt is not open to discussing any further titration of his medications, indicating desire to not continue them long-term. We discussed the importance of aftercare with regard to making decisions to taper medications when appropriate. Pt denied any acute concerns today. Physical Exam Psychiatric Orientation: alert, oriented x 3 and + guarded (superficially cooperative) Apperance: appropriately dressed, appropriately groomed and appeared stated age Eye Contact: + fair eye contact Motor Behavior: steady gait and station and no abnormal motor movements Speech: normal rate/rhythm/volume of speech Affect: euthymic affect Mood: no depressed mood Thought Process: goal directed thought process and clear/coherent thought process Thought Content: reality based without delusions; no hopelessness and no worthlessness Suicidal Thoughts: denies suicidal thoughts and denies suicidal intent Homicidal Thoughts: denies homicidal thoughts Hallucinations: no auditory hallucinations and no visual hallucinations Cognition: attention grossly intact and language grossly intact Estimated Intelligence: consistent with education level Insight: + limited insight Judgement: + fair judgement Vital Signs (Past 24 Hours) Last Vital Signs Temp 36.7 C 04/18/20 06:37 Pulse 76 04/18/20 06:38 Resp 16 04/18/20 06:37 BP 96/57 L 04/18/20 06:38 Pulse Ox 98 04/15/20 17:32 Results & Data ([facility]) Laboratory Results Laboratory Results - last 24 hr 04/15/20 15:40 U Marijuana THC Carboxy 1380 H Drug Screen Comment SEE NOTE Current Inpatient Medications Current Inpatient Medications: Current Inpatient Medications Acetaminophen (Acetaminophen 325 Mg Tab) 650 mg PO Q4H PRN PRN Reason: Headache or Minor Fever Stop: 05/15/20 18:50 Al Hydrox/Mg Hydrox/Simethicone (Aluminum/Magnesium Susp 30 Ml Udc) 30 ml PO Q4H PRN PRN Reason: GI Upset Stop: 05/15/20 18:50 Bismuth Subsalicylate (Bismuth Subsalicylate Liqd 236 Ml) 15 ml PO PRN PRN PRN Reason: Loose Stool Stop: 05/15/20 18:50 Escitalopram Oxalate (Escitalopram Oxalate 10 Mg Tab) 15 mg PO QAM PAULO Stop: 05/17/20 08:59 Last Admin: 04/18/20 09:07 Dose: 15 mg Documented by: Hydroxyzine HCl (Hydroxyzine Hcl 25 Mg Tab) 50 mg PO HSZ PRN PRN Reason: Insomnia Stop: 05/15/20 18:50 Hydroxyzine HCl (Hydroxyzine Hcl 25 Mg Tab) 25 mg PO Q4H PRN PRN Reason: Anxiety Stop: 05/15/20 18:50 Magnesium Hydroxide (Magnesium Hydroxide Susp 30 Ml Udc) 30 ml PO DAILY PRN PRN Reason: Constipation Stop: 05/15/20 18:50 Sodium Chloride (Sodium Chloride 0.65% Na Soln 45 Ml ([place])) 1 - 2 sprays NA PRN PRN PRN Reason: Nasal Dryness/Congestion Stop: 05/15/20 18:50 Post Discharge Appointments Primary Care Physician Name Of Family Doctor: Dr. Sharona Hodges Date of Appointment with PCP: 05/10/20 (1) Depression Depression Type: unspecified Qualified Code(s): F32.9 - Major depressive disorder, single episode, unspecified
--- NOTE | 2020-04-19 09:00 | Discharge Summary ---
Date of Service April 19, 2020 History of Present Illness Patient was admitted through the ER last evening where he presented reporting feeling sad, depressed, with waxing and waning course over the years. He felt that his depression has been getting worse over the past several months with small stressors having more overwhelming emotional impact. He acknowledged thoughts of wanting to end it all and thought that the suicidal impulses have been recurrent and persistent but denied a specific plan for self-harm. He was medically cleared for behavioral health admission. Labs were unremarkable apart from marijuana on drug screen. On interview he describes a long history of depression where he will feel sad without clear trigger. He describes recent default mood as "bored and lonely." COVID-19 restrictions have worsened his mood. "It feels like he can't do anything." He describes recurrent but not persistent desire to escape the pain of how he is feeling however he denies that he has concocted a specific plan for self-harm and denies a history of self injury. He describes stable sleep patterns, fair energy, crying spells 1-2 times per week, small unquantified recent weight loss. He denies anhedonia. He denies any symptoms of psychosis, venice, PTSD, generalized anxiety, social anxie ty, eating disorder, or panic attacks. He reports he was started on Lexapro a few years ago by his PCP around the age of [age] but did not take it consistently and discontinued after approximately 6 months. This was restarted approximately 1 month ago without side effects. He reports that he is presently compliant with the medication. He describes a quick flight to health on admission stating that he does not believe he needs this level of intervention, intent or plan for self-harm presently, but does describe desire to seek additional supports and feel better. Of note, in the afternoon following initial psychiatric interview, I was informed by social work that the patient's mother had indicated to her that he had made numerous threats to commit suicide, that she had made efforts to involve his school but he failed to follow through, and that on Saturday he told her via text that he wanted to kill himself and he refused to engage in discourse about that which prompted her to alert his girlfriend who reportedly brought him to the ER. Patient's girlfriend reportedly told his mother that she had seen evidence of some cuts on arms and legs that were not described on physical exam in the ER. Physical Exam Psychiatric Orientation: alert and cooperative Apperance: appropriately dressed, appropriately groomed and appeared stated age Wearing sweatpants and [employer] sweatshirt, roe up, seated in NAD Eye Contact: good eye contact Motor Behavior: steady gait and station and no abnormal motor movements Speech: normal rate/rhythm/volume of speech Affect: euthymic affect and mood congruent with affect "Really good." Thought Process: goal directed thought process and linear/logical thought process Thought Content: reality based without delusions Suicidal Thoughts: denies suicidal thoughts Homicidal Thoughts: denies homicidal thoughts Hallucinations: no auditory hallucinations Cognition: recent memory grossly intact, attention grossly intact and language grossly intact Estimated Intelligence: consistent with education level Insight: + fair insight Judgement: + fair judgement Vital Signs (Past 24 Hours) Last Vital Signs Temp 36.6 C 04/19/20 06:31 Pulse 76 04/19/20 06:32 Resp 16 04/19/20 06:31 BP 102/62 04/19/20 06:32 Pulse Ox 98 04/15/20 17:32 Principal Diagnosis Major depressive disorder, recurrent, severe without psychosis Cannabis use Psychiatric Data Patient was hospitalized for 4 days. On admission, he reported that he had been adherent to Escitalopram 10 mg daily for the past month, with ongoing depressive symptoms, so it was increased to 15 mg daily. He tolerated this dose well, and later in his hospitalization reported that he had not been adherent with the medication at home and had been missing frequent doses. He had a quick flight into health immediately after admission, and minimized presenting symptoms. His mother provided collateral information, including that he had made numerous threats to commit suicide, including texting her prior to admission stating he was going to kill himself, and then refusing to engage in further discussion with her, would not answer if he had tried to hurt himself, and then would not answer her subsequent phone calls. She had contacted his University to try to get help for him, but he would not follow through. She contacted his girlfriend, who then brought him to the ER, and told her that he had been cutting on his arms and legs. His mother expressed concern that he is not being forthcoming and would harm himself if he was discharged too soon. Two family meetings were held with the patient, his mother, and the certified social workers in health care, as during the first meeting he minimized or denied symptoms and was not forthcoming. His mother then contacted staff to report concerns as above, so a second meeting was held, during which the patient was able to discuss some of his stressors, but continued to minimize his presenting symptoms, and refused to discuss the cuts on his arm, getting angry at the certified social workers in health care for bringing it up. 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 Attempted to explore his stressors, and some resistance was noted. His pattern of smoking pot to deal with negative emotions was discussed, as well as episodes of agitation/hitting doors at home. They requested referral for outpatient therapy in the [facility]. His mother confirmed that guns in the home were secured and the patient would not have access to them. The patient clarified that he plans to stay in [place] and attend [employer] remotely through the end of the school year. He signed releases for communication with his University so they could be informed of hospitalization and the need to reschedule missed work. He was initially focused on rapid discharge, but did engage in treatment, attended and participated in groups and therapy, and spent free time with a select group of peers. He was observed to be eating and sleeping well, and took medication as prescribed. He was provided psychoeducation about the risks of ongoing cannabis use, and stated awareness that it was exacerbating symptoms, and agreed to abstain. He continued to report improved mood and resolution of suicidal thoughts, and was able to process stressors and work on healthy coping skills. He did not have episodes of agitation or aggressive behavior on the unit, and became more cooperative and engaged his treatment progressed. Day of Discharge Assessment Staff report the patient has been attending groups, reporting improved energy and mood, has been out of his room interacting with peers and playing games during free time. He rated his mood a 10/10 and described as "good." He is supportive of peers and appears to enjoy interacting with them. He completed intake paperwork for [facility] for therapy. On my assessment, he asks if he is being discharged today, and when informed that is the plan, says that makes him very happy, as he feels better and ready to go. He describes his mood is "great," and denies thoughts of harming himself, thoughts of suicide, and any safety concerns with leaving the hospital. He states that although he still does not really think he needed to be in the hospital, it helped to "take a step back, just to talk, hear others' stories, realize I'm not alone." He has been able to work on his coping mechanisms, and identifies that he avoids dealing with negative emotions, and then things "build up," and he feels overwhelmed by even small stressors. He is tolerating escitalopram well, and admits he was poorly adherent with it in the past. Discussed that to gain the maximum benefit it should be taken daily as prescribed, and he indicates a hope to come off medication in the future, as "I'm not really a medication person." Reviewed the general recommendations to continue an antidepressant for at least 6 months after remission, and then discussion of the risks and benefits of tapering off medication with his outpatient physician. He indicated understanding and agreement. He states he is feeling optimistic for the future, and is looking forward to his girlfriend picking him up and going to eat at his favorite [place] restaurant today. Transition of Care Transition Of Care Record: was reviewed with the patient Advance Directives Advance Directives Information Provided: Yes Advance Directives: No Mental Health Advance Directive: No Advance Directives on File: No Living Will: No Power of Digital Media Producer: No Advance Directives Reason:: Declines as Mental Health Visit. Risk Factors Assessment Risk factors were mitigated by admission to the inpatient unit, use of medications to target depressive symptoms, education about his diagnosis and the recommended treatment, education about the importance of medication adherence and avoidance of drugs of abuse, multiple family meetings with his mother and the certified social workers in health care, involving him in groups and therapy, working on healthy coping skills and a discharge safety plan, processing stressors and maladaptive coping skills, and referring for outpatient therapy and return to medication management with PCP. Patient has demonstrated improvement in mood and resolution of suicidal thoughts, he is eating and sleeping well, tending to ADLs independently, and taking medications as prescribed. He indicates willingness to follow-up with outpatient treatment, and to abstain from recreational drug use. He is requesting discharge, and as he is no longer at acute risk of harm to himself, can be managed as an outpatient at this time. Male: Yes : Yes Do You Have Access To A Gun?: No (Reports father has guns at home but mother confirmed that they are secured ) Health Problems: No Mental Health Diagnoses: Yes Substance Use Disorders: No (But smoking cannabis regularly, agrees to abstain) Previous Attempt: No Family History of Suicide: No Previous Psychiatric Hospitalization: No Hopelessness: No Smoker: Yes Protective Factors Assessment : No Responsible for Young Children: No Employed: No Stable Relationships: Yes Supportive Family: Yes Good Rapport with Provider: Yes Tobacco Cessation at Discharge Tobacco Cessation Medication Prescribed at Discharge: Offered & Pt Refused Practical counseling provided including: recognizing danger situations, developing coping skills and providing basic information about quitting Tobacco Cessation Outpatient Followup: Outpatient referral made to (PCP) Total Time Total Time Spent: Greater Than 30 Minutes Total Time Includes: Examination of the patient, Discharge Planning and Medication Reconciliation Discharge Data Lab Results 04/15/20 04/15/20 04/15/20 15:40 15:40 15:40 WBC RBC Hgb Hct MCV MCH MCHC RDW Std Deviation RDW Coeff of Yeny Plt Count MPV Immature Gran % (Auto) Neut % (Auto) Lymph % (Auto) [place] % (Auto) Eos % (Auto) Baso % (Auto) Neut # (Auto) Lymph # (Auto) [place] # (Auto) Eos # (Auto) Baso # (Auto) Immature Gran # (Auto) Sodium Potassium Chloride Carbon Dioxide Anion Gap BUN Creatinine Est Cr Clr Drug Dosing Est GFR ( Amer) Est GFR (Non-Af Amer) BUN/Creatinine Ratio Glucose Calcium Total Bilirubin AST ALT Alkaline Phosphatase Total Protein Albumin Globulin Albumin/Globulin Ratio TSH Urine Color Dark Yellow Urine Appearance Clear Urine pH 6.0 Ur Specific [place] 1.033 H Urine Protein 1+ H Urine Glucose (UA) Negative Urine Ketones 1+ H Urine Blood Negative Urine Nitrite Negative Urine Bilirubin Negative Urine Urobilinogen Negative Ur Leukocyte Esterase Trace H Urine WBC (Auto) 1-5 Urine RBC (Auto) 0-4 U Hyaline Cast (Auto) 1-5 U Epithel Cells (Auto) 5-10 H Urine Bacteria (Auto) Negative Salicylates Urine Opiates Screen Neg Ur Methadone, Qual Neg Acetaminophen Urine Barbiturates Neg Ur Phencyclidine (PCP) Neg U Amphetamin/Meth Scrn Neg MDMA (Ecstasy) Screen Neg U Benzodiazepines Scrn Neg Ur Cocaine Metabolite Neg U Marijuana (THC) Screen Pos H U Marijuana THC Carboxy 1380 H Drug Screen Comment SEE NOTE Ethyl Alcohol mg/dL SARS-CoV-2 Ag (Rapid) 1104/15/20 04/15/20 16:06 16:06 16:06 WBC 8.94 RBC 4.85 Hgb 14.8 Hct 42.1 MCV 86.8 MCH 30.5 MCHC 35.2 RDW Std Deviation 40.8 RDW Coeff of Yeny 12.8 Plt Count 345 MPV 10.5 H Immature Gran % (Auto) 0.1 Neut % (Auto) 67.9 Lymph % (Auto) 22.3 [place] % (Auto) 9.2 Eos % (Auto) 0.2 Baso % (Auto) 0.3 Neut # (Auto) 6.07 Lymph # (Auto) 1.99 [place] # (Auto) 0.82 H Eos # (Auto) 0.02 Baso # (Auto) 0.03 Immature Gran # (Auto) 0.01 Sodium 137 Potassium 3.6 Chloride 105 Carbon Dioxide 27 Anion Gap 5.0 BUN 17 Creatinine 1.10 Est Cr Clr Drug Dosing 87.8 Est GFR ( Amer) 112.2 Est GFR (Non-Af Amer) 96.8 BUN/Creatinine Ratio 15.7 Glucose 105 H Calcium 8.8 Total Bilirubin 0.7 AST 11 L ALT 17 Alkaline Phosphatase 55 Total Protein 7.8 Albumin 4.5 Globulin 3.3 Albumin/Globulin Ratio 1.4 TSH 0.736 Urine Color Urine Appearance Urine pH Ur Specific [place] Urine Protein Urine Glucose (UA) Urine Ketones Urine Blood Urine Nitrite Urine Bilirubin Urine Urobilinogen Ur Leukocyte Esterase Urine WBC (Auto) Urine RBC (Auto) U Hyaline Cast (Auto) U Epithel Cells (Auto) Urine Bacteria (Auto) Salicylates < 1.7 L Urine Opiates Screen Ur Methadone, Qual Acetaminophen < 2 L Urine Barbiturates Ur Phencyclidine (PCP) U Amphetamin/Meth Scrn MDMA (Ecstasy) Screen U Benzodiazepines Scrn Ur Cocaine Metabolite U Marijuana (THC) Screen U Marijuana THC Carboxy Drug Screen Comment Ethyl Alcohol mg/dL SARS-CoV-2 Ag (Rapid) 04/15/20 04/15/20 16:06 Unknown WBC RBC Hgb Hct MCV MCH MCHC RDW Std Deviation RDW Coeff of Yeny Plt Count MPV Immature Gran % (Auto) Neut % (Auto) Lymph % (Auto) [place] % (Auto) Eos % (Auto) Baso % (Auto) Neut # (Auto) Lymph # (Auto) [place] # (Auto) Eos # (Auto) Baso # (Auto) Immature Gran # (Auto) Sodium Potassium Chloride Carbon Dioxide Anion Gap BUN Creatinine Est Cr Clr Drug Dosing Est GFR ( Amer) Est GFR (Non-Af Amer) BUN/Creatinine Ratio Glucose Calcium Total Bilirubin AST ALT Alkaline Phosphatase Total Protein Albumin Globulin Albumin/Globulin Ratio TSH Urine Color Urine Appearance Urine pH Ur Specific [place] Urine Protein Urine Glucose (UA) Urine Ketones Urine Blood Urine Nitrite Urine Bilirubin Urine Urobilinogen Ur Leukocyte Esterase Urine WBC (Auto) Urine RBC (Auto) U Hyaline Cast (Auto) U Epithel Cells (Auto) Urine Bacteria (Auto) Salicylates Urine Opiates Screen Ur Methadone, Qual Acetaminophen Urine Barbiturates Ur Phencyclidine (PCP) U Amphetamin/Meth Scrn MDMA (Ecstasy) Screen U Benzodiazepines Scrn Ur Cocaine Metabolite U Marijuana (THC) Screen U Marijuana THC Carboxy Drug Screen Comment Ethyl Alcohol mg/dL < 3.0 SARS-CoV-2 Ag (Rapid) Negative Hospital Course (1) Depression: 04/16/2020 -Patient admitted on a voluntary status to the behavioral health unit. He will be maintained on every 15 minute safety checks and encouraged to participate in therapeutic programming as appropriate -We'll continue to expand database. Input from patient's mother per social work suggests possibility that he is minimizing severity of suicidality on initial interview -Common risks and benefits as well as need for consistent medication compliance reviewed regarding SSRI. Patient was agreeable to small dose escalation of Lexapro to 15 mg daily for additional antidepressant benefit 04/17 -I am increasingly concerned about patient's safety and impulsivity today, as it appears likely that he has not been forthcoming regarding recent self injury (cutting) and degree of emotional distress which has been recently associated with some destructive behavior and suicidal threats per outside historian. As such, we will plan to continue his hospitalization at least until tomorrow and reinvolve his mother with another family meeting this afternoon mood with his permission to try to bring some of these issues to the fore and hopefully engage him in some more honest dialogue -Consider increasing Lexapro to 20 mg daily prior to discharge -Reviewed importance of outpatient follow-up and patient expresses continued willingness to do so. On Saturday we will be able to schedule him for psychiatric and therapy follow-up appointments 04/18 - Continue current treatment plan. Recommending ongoing hospitalization until aftercare can be appropriately arranged. - Pt continues to have difficulty articulating the stressors that led to his admission, placing him at higher risk of potential harm to self if he is discharged without appropriate outpatient providers. - He remains resistant to any further titration of escitalopram. 04/19 -Prescription issued for #30 days of Escitalopram 15 mg daily. Education provided about the importance of taking it as prescribed for the maximum benefit, and as he hopes to come off medications in the future, discussed bene fits of staying on the medication for at least 6 months after remission in order to decrease the risk of relapse. -Referred to [facility] for therapy; appointment with Alexis Hickey on 04/29/2020 at 10 AM. Follow-up with PCP for medication management with appointment on 04/29/2020. (2) Marijuana use: 04/16/2020 -Psychoeducation provided regarding the potential negative outcomes of marijuana abuse regarding underlying mood disorder and abstinence encouraged. Patient verbalized understanding and indicated that he had already significantly reduced marijuana utilization prior to presentation as he felt that it was making him more apathetic Mental Health & Subst Abuse Tx Therapist Name of Therapist: [facility] Sourav Hickey Therapist's Date of Therapist Appointment: 04/29/20 Time of Therapist Appointment: 10:00 am Therapy Appointment Comment: Online- please check email Post Discharge Appointments Primary Care Physician Name Of Family Doctor: [facility] - Dr. Sharona Hodges Primary Care Date of Appointment with PCP: 04/25/20 Time of Appointment with PCP: 2:00pm Provider Appointment Comment: [address], [place] [address] Smoking Cessation Counseling Tobacco Cessation Medication Prescribed at Discharge: Offered & Pt Refused Contact Information Discharge Discharge Address: [address] [place] [address], [place] [address] Discharge Plan Discharge Items Patient Disposition: Home - Self-Care Reason For Visit: MENTAL HEALTH EVAL Discharge Diagnosis: Depression Activity: Per Instructions section Non-emergency contact: Primary Care Provider and Therapist Call non-emergency contact if: you have any medication questions and your symptoms worsen Follow-up/Referrals: Sharona Hodges D.O. [Primary Care Provider] - Diet: Regular Addtl Attending Provider Instructions: SPECIAL CARE INSTRUCTIONS: 1. Follow through with your scheduled aftercare appointments. If unable to keep an appointment, please call to reschedule. 2. Take your medication only as prescribed. Medication should not be changed or stopped without the approval of your doctor. In the event of worsening symptoms or concerns about side effects, contact your doctor immediately. 3. Utilize new healthy coping skills, anger management skills, and stress management skills learned during your hospitalization. Journal feelings and process them with a support person. Identify stressors or situations that may result in relapse, deterioration or inappropriate behaviors and develop a plan to deal with those issues. 4. If your coping skills are ineffective and you are in crisis, contact your outpatient providers for direction. If unable to reach your providers, please call the [facility] CRISIS LINE AT , go to the [facility] walk-in center at [address] [place] [address] A, [place], or go to the closest Emergency Room. 5. Avoid alcohol and un-prescribed drugs. 6. You have been provided with the Mental Health Advance Directives Pamphlet for your review. AFTERCARE APPOINTMENTS: * Please call your insurance company prior to your scheduled appointment to confirm your aftercare providers are covered. Take your insurance information to your appointments. WHO TO CALL AND WHEN: Medical Emergencies: For questions or emergencies related to your hospital stay, please contact the Inpatient Behavioral Health Unit at [phone]. A manager wellness is on-call 17/12 for the Behavioral Health Unit for emergencies At any time you feel your situation is an emergency, you may also call 911 immediately. Pending Studies at Discharge: No Stand-Alone Forms: [facility] Typesafe, Smoking Cessation Medications and DC Order Prescriptions: Changed escitalopram oxalate 10 mg tablet 15 mg PO DAILY Qty: 45 RF: 0 Discharge Orders: Discharge Order (Routine); Ordered 04/19/20 Ordered By: Wanda Haney Admission Data Admit Date/Time: 04/15/20 18:51 Attending Provider: Nilo Sage Admit Provider: Nilo Sage Primary Care Provider: Sharona Hodges Other Interventions: PSY Interdisciplinary Discharge Planning Last Done: 04/19/20 07:48 Coding Level of Care Code 80703 D/C day mgmt > 30 min Diagnoses Depression F32.9 Depression Type: unspecified Marijuana use F12.90
[2020-04-19] MEDS: ESCITALOPRAM OXALATE 10 MG TAB PO SCH (09:08)
== END 2020-04-19 11:40 | disposition home or self-care (01) | DRG 885 ==
LOC: ED 15:32 → 3S 18:34